=== PATIENT | male | born 1990 | race Caucasian/White ===

== ENCOUNTER 2021-10-01 23:35 | Emergency (ER) | payer SELFPAY ==
[2021-10-02] MEDS ORDERED: Lidocaine 1% 5 ML VIAL ONE (00:32)
== END 2021-10-02 01:26 | disposition home or self-care (01) ==
LOC: MW.ED 23:35
DX: S06.9X9A Unspecified intracranial injury with loss of consciousness of unspecified duration, initial encounter (principal); S01.01XA Laceration without foreign body of scalp, initial encounter; Z91.048 Other nonmedicinal substance allergy status; V80.010A Animal-rider injured by fall from or being thrown from horse in noncollision accident, initial encounter; Y93.52 Activity, horseback riding
CPT/HCPCS: 70450; 70450-26; 99284

== ENCOUNTER 2021-10-14 11:08 | Emergency (ER) | payer SELFPAY | END 2021-10-14 13:45 | disposition home or self-care (01) | LOC: MW.ED 11:08 | DX: S01.01XD Laceration without foreign body of scalp, subsequent encounter (principal) | CPT/HCPCS: 99281 ==

== ENCOUNTER 2022-01-16 13:39 | Emergency (ER) | payer SELFPAY | END 2022-01-16 14:40 | disposition home or self-care (01) | LOC: MW.ED 13:39 | DX: R05.9 Cough, unspecified (principal); Z91.048 Other nonmedicinal substance allergy status | CPT/HCPCS: 99283 ==